=== PATIENT | female | born 1985 | race Caucasian/White ===

== ENCOUNTER → 2018-01-15 17:15 | Observation (INO) ==
--- NOTE | 2018-01-15 16:19 | OB/GYN Progress Note ---
Date of Encounter: 01/15/18 Time of Encounter: 16:16 - Assessment and Plan (1) 20 weeks gestation of Current Visit: Yes Status: Acute SSE - no source of bleeding noted SVE - Closed U/A- NSF UDS - Neg FHTs - appropriate for gestation Discharge home with bleeding precautions and PTL precautions Follow up with primary OB within one week and PRN (2) Vaginal bleeding before 22 weeks gestation Current Visit: Yes Status: Acute Subjective - Subjective Principal diagnosis: Vaginal bleeding Interval history: Ms Tucker is a at 20 weeks and 5 days that presents to triage with c/o passing one vaginal clot at work earlier today. She denies any additional bleeding or spotting prior to and after the event. She states that she has not had any problems with this and has not been told that she has any problems with the location of her placenta. She sees Dr Miner in [place] for her care. She denies headache, visual disturbances, epigastric pain, and cramping/leaking of fluid. She states positive movement. She denies ever receiving Rhogam in any of her previous or current pregnancies, but does not know her blood type. Denies intercourse in the past 48 hours. Antepartum ROS: vaginal bleeding, movement normal, no new complaints, no loss of fluid, no contractions Objective - Vital Signs Vital Signs: Intake and Output 01/15/18 01/15/18 01/15/18 07:59 15:59 23:59 Other: Weight 117.48 kg Patient Weight 01/15/18 23:59 Weight 117.48 kg - Exam FHR: auscultation normal FHR comments: FHTs 150 Auscultation: bilateral: normal Abdomen: Present: normal appearance, soft, gravid Uterus: Present: normal. Absent: firm, tenderness Cervical dilation: closed Cervix effacement: thick station: high Comments: SSE - small amount of white discharge. Cervix appears visually closed. No source of bleeding located. Urethra appears WNL
[2018-01-15 17:02] LABS: Bilirubin,Urine Negative (Negative); Blood,Urine Negative (Negative); Clarity,Urine Clear (Clear); Color,Urine Yellow (Yellow); Glucose,Urine (UA) Normal (Normal); Ketones,Urine Negative (Negative); Leukocyte Esterase,Urine Negative (Negative); Nitrite,Urine Negative (Negative); Protein,Urine Negative (Neg-Trace); Specific Gravity,Urine 1.015 (1.010-1.025); Urobilinogen,Urine Normal (Normal)
[2018-01-15 17:27] LABS: Amphetamine Screen,Urine Negative ng/mL (Cutoff=1000); Barbiturate Screen,Urine Negative ng/mL (Cutoff=200); Benzodiazepines Screen,Urine Negative ng/mL (Cutoff=200); Cannabinoid Screen,Urine Negative ng/mL (Cutoff = 50); Cocaine Screen,Urine Negative ng/mL (Cutoff= 300); Opiate Screen,Urine Negative ng/mL (Cutoff=300); Phencyclidine Screen,Urine Negative ng/mL (Cutoff=25)
== END | disposition home or self-care (01) ==
LOC: 1NENULAB
PROVIDERS: ADMIT Obstetrics & Gynecology; ATTEND Obstetrics & Gynecology